=== PATIENT | female | born 1985 | race Asian ===

== ENCOUNTER 2016-03-22 01:35 | Observation (INO) | payer BC ==
[~2016-03-22] VITALS: Ht 154.9 cm; Wt 63.5 kg
== END 2016-03-22 04:37 | disposition home or self-care (01) ==
LOC: SPU 01:35
PROVIDERS: ADMIT Obstetrics & Gynecology; ATTEND Obstetrics & Gynecology
DX: O36.8130 Decreased fetal movements, third trimester, not applicable or unspecified (principal); Z3A.38 38 weeks gestation of pregnancy
CPT/HCPCS: G0378; G0379; 81002-TC

== ENCOUNTER 2016-03-30 23:30 | Observation (INO) | payer BC ==
[~2016-03-30] VITALS: Ht 154.9 cm; Wt 68.0 kg
== END 2016-03-31 00:40 | disposition home or self-care (01) ==
LOC: SPU 23:30
PROVIDERS: ADMIT Specialist; ATTEND Specialist
DX: O42.92 Full-term premature rupture of membranes, unspecified as to length of time between rupture and onset of labor (principal); Z3A.39 39 weeks gestation of pregnancy
CPT/HCPCS: 81002; G0378

== ENCOUNTER 2016-04-02 00:40 | Inpatient (IN) | payer BC ==
[~2016-04-02] VITALS: Ht 154.9 cm; Wt 68.0 kg
[2016-04-02] MEDS ORDERED: OXYTOCIN/NORMAL SALINE 1,000 ML IV SCH (01:00)
[2016-04-02] MEDS ORDERED: LR 1,000 ML IV SCH (01:00)
[2016-04-02] MEDS: MISOPROSTOL 100 MCG TABLET (CYTOTEC) PO PRN ×2 (01:40→05:39)
[2016-04-02 01:46] LABS: BASOPHILS % (AUTO) 0.5 % (0.0-2.0); EOSINOPHILS % (AUTO) 0.5 % (0.0-4.0); HEMATOCRIT 35.6 % (36-48); HEMOGLOBIN 12.4 g/dL (12.0-16.0); LYMPHOCYTES # (AUTO) 1.6 K/uL (1.0-5.5); LYMPHOCYTES % (AUTO) 17.6 % (20.5-51.5); MEAN CORPUSCULAR HEMOGLOBIN 29 pg (27-31); MEAN CORPUSCULAR HGB CONC 35 % (32-36); MEAN CORPUSCULAR VOLUME 84 fL (79.0-98.0); MONOCYTES # (AUTO) 1.1 K/uL (0.0-1.0); MONOCYTES % (AUTO) 11.9 % (1.7-9.3); NEUTROPHILS # (AUTO) 6.7 K/uL (1.8-7.7); NEUTROPHILS % (AUTO) 69.5 % (40.0-70.0); PLATELET COUNT (AUTO) 225 K/uL (130-430); RED BLOOD CELL COUNT(AUTO) 4.24 MIL/uL (4.2-6.2); WHITE BLOOD COUNT (AUTO) 9.4 K/uL (4.8-10.8)
[2016-04-02 02:16] VITALS: BP 114/71; PULSE 93; RESP 18; TEMP 98
[2016-04-02] MEDS ORDERED: TERBUTALINE SULFATE 1 MG/ML VIAL SUBCUT ONE (06:45)
[2016-04-02] MEDS ORDERED: FENT2mCg/mL-ROPIVA0.2%/NS EPID 150 ML EP ONE (15:42)
[2016-04-02] MEDS ORDERED: LR 500 ML IV ONE (16:11)
[2016-04-02] MEDS ORDERED: ePHEDrine sulfate 50 MG/ML VIAL IVP PRN (16:15)
[2016-04-02] MEDS ORDERED: FENT2mCg/mL-ROPIVA0.2%/NS EPID 150 ML EP SCH (16:15)
[2016-04-03] MEDS ORDERED: OXYTOCIN/NORMAL SALINE 1,000 ML IV ONE (01:22)
[2016-04-03] MEDS ORDERED: METHYLERGONOVINE MALEATE 0.2 MG TABLET PO PRN (01:30)
[2016-04-03] MEDS ORDERED: OXYCODONE/ACETAMINOPHEN 5-325 TABLET PO PRN ×2 (01:30)
[2016-04-03] MEDS ORDERED: HYDROmorphone 2 MG TAB PO PRN (01:30)
[2016-04-03] MEDS ORDERED: SENNOSIDES/DOCUSATE SODIUM 1 TAB TABLET(SENOKOT-S) PO PRN (01:30)
[2016-04-03] MEDS ORDERED: RHO(D) IMMUNE GLOBULIN/MALTOSE 1500 UNITS/1.3 ML (WINHRO) IM PRN (01:30)
[2016-04-03] MEDS ORDERED: DERMOPLAST SPRAY TP PRN (01:30)
[2016-04-03] MEDS ORDERED: DOCUSATE SODIUM 100 MG CAPSULE PO PRN (01:30)
[2016-04-03] MEDS ORDERED: LANOLIN 7 GM OINT. TP PRN (01:30)
[2016-04-03] MEDS ORDERED: MEASLES,MUMPS&RUBELLA VACC/PF 12500 UNIT/0.5 ML VIAL SUBQ PRN (01:30)
[2016-04-03] MEDS ORDERED: MORPHINE 2 MG/ML INJ. SYRINGE IVP ONE (01:45)
[2016-04-03] MEDS ORDERED: MORPHINE SULFATE 10 MG/ML VIAL ONE (02:01)
[2016-04-03] MEDS: IBUPROFEN 600 MG TABLET PO SCH ×2 (08:01→14:22)
[2016-04-03 08:17] LABS: HEMOGLOBIN 9.9 g/dL (12.0-16.0)
[2016-04-03] MEDS ORDERED: TEMAZEPAM 15 MG CAPSULE PO PRN (21:00)
[2016-04-04 07:50] LABS: BASOPHILS % (AUTO) 0.1 % (0.0-2.0); EOSINOPHILS # (AUTO) 0.1 K/uL (0.0-0.4); EOSINOPHILS % (AUTO) 0.8 % (0.0-4.0); HEMATOCRIT 24.4 % (36-48); HEMOGLOBIN 8.2 g/dL (12.0-16.0); LYMPHOCYTES # (AUTO) 1.9 K/uL (1.0-5.5); LYMPHOCYTES % (AUTO) 14.9 % (20.5-51.5); MEAN CORPUSCULAR HEMOGLOBIN 29 pg (27-31); MEAN CORPUSCULAR HGB CONC 34 % (32-36); MEAN CORPUSCULAR VOLUME 87 fL (79.0-98.0); NEUTROPHILS # (AUTO) 9.8 K/uL (1.8-7.7); NEUTROPHILS % (AUTO) 76.2 % (40.0-70.0); PLATELET COUNT (AUTO) 153 K/uL (130-430); RED BLOOD CELL COUNT(AUTO) 2.81 MIL/uL (4.2-6.2); RED CELL DISTRIBUTION WIDTH 13.4 % (9.0-15.0); WHITE BLOOD COUNT (AUTO) 12.8 K/uL (4.8-10.8)
[2016-04-04] MEDS ORDERED: NA PHOS,M-B/NA PHOS,DI-BA 118 ML (FLEET ENEMA) RC ONE (12:15)
[2016-04-04] MEDS: IBUPROFEN 600 MG TABLET PO SCH ×2 (12:27)
== END 2016-04-04 16:25 | disposition home or self-care (01) | DRG 775 ==
LOC: SPU 00:40 → OBSVTOIN 01:00
PROVIDERS: ADMIT Obstetrics & Gynecology; ATTEND Obstetrics & Gynecology
PROC: 10D07Z6 Extraction of Products of Conception, Vacuum, Via Natural or Artificial Opening (ICD-10-PCS; principal; 2016-04-03)
PROC: 3E0S3CZ (ICD-10-PCS; 2016-04-03)
PROC: 00HU33Z Insertion of Infusion Device into Spinal Canal, Percutaneous Approach (ICD-10-PCS; 2016-04-03)
DX: O80 Encounter for full-term uncomplicated delivery (principal); Z3A.39 39 weeks gestation of pregnancy; Z37.0 Single live birth
CPT/HCPCS: 36415; 85018-TC; 85025; 86592; 86886; 86900; 86901; G0378; J2270; J2590; J3010; J7120